=== PATIENT | female | born 1990 | race Caucasian/White ===

== ENCOUNTER → 2021-07-24 12:50 | Observation (INO) | END | disposition home or self-care (01) | LOC: 1NENULAB | PROVIDERS: ADMIT Obstetrics & Gynecology; ATTEND Obstetrics & Gynecology ==

== ENCOUNTER → 2021-07-28 14:57 | Observation (INO) | END | disposition home or self-care (01) | LOC: 1NENULAB | PROVIDERS: ADMIT Obstetrics & Gynecology; ATTEND Obstetrics & Gynecology ==

== ENCOUNTER 2021-07-31 09:42 | Inpatient (IN) ==
[2021-07-31 08:27] LABS: Bilirubin,Urine Negative (Negative); Blood,Urine Large (Negative); Clarity,Urine Clear (Clear); Color,Urine Yellow (Yellow); Glucose,Urine (UA) Normal (Normal); Ketones,Urine Negative (Negative); Leukocyte Esterase,Urine Trace (Negative); Nitrite,Urine Negative (Negative); PH,Urine 6.5 pH Units (5.0-8.0); Protein,Urine Negative (Neg-Trace); Specific Gravity,Urine 1.015 (1.010-1.025); Urobilinogen,Urine Normal (Normal)
[2021-07-31 08:55] LABS: Bacteria,Urine Present per hpf (None-Few); RBC,Urine Present per hpf (0-3); Squamous Epithelial Cell,Urine Present per hpf (None-Few); WBC,Urine Present per hpf (0-3)
[~2021-07-31 09:42] MED LIST: Azithromycin 500 MG in 0.9 % Sodium Chloride 250 ML IVPB PRN; Clindamycin 900 MG/50 ML 900 MG/50 ML IV.SOLN IVPB ONE; Famotidine 20 MG/2 ML VIAL IVP ONE; Metoclopramide 10 MG/2 ML VIAL IVP ONE
[2021-07-31] MEDS ORDERED: Oxytocin 30 UNIT/503 ML BAG IVC SCH ×2 (09:45→15:20)
[2021-07-31] MEDS ORDERED: 0.9 % Sodium Chloride 1,000 ML IVC SCH (09:45)
[2021-07-31] MEDS ORDERED: *HR* Morphine Sulfate/PF 10 MG/10 ML AMPUL ONE (09:58)
[2021-07-31] MEDS ORDERED: *HR* FentaNYL (PF) 100 MCG/2 ML VIAL ONE (09:58)
[2021-07-31] MEDS ORDERED: EPHEDrine 50 MG/ML VIAL ONE (09:58)
[2021-07-31] MEDS ORDERED: Acetaminophen IV 1,000 MG/100 ML BAG IVPB ONE (10:00)
[2021-07-31] MEDS ORDERED: Ketorolac 30 MG/ML VIAL ONE (10:00)
[2021-07-31] MEDS ORDERED: Ondansetron 4 MG/2 ML VIAL ONE (10:00)
[2021-07-31] MEDS ORDERED: Ringers Solution, Lactated 1,000 ML ONE ×2 (10:01→10:10)
[2021-07-31 10:23] LABS: Basophils # 0.1 K/mcL (0.0-0.2); Basophils % 0.4 %; Eosinophils # 0.1 K/mcL (0.0-0.6); Eosinophils % 0.5 %; Hematocrit 42.6 % (35.3-44.9); Hemoglobin 14.9 g/dL (11.5-15.4); Immature Granulocytes % 0.9 % (0-4); Lymphocytes # 1.5 K/mcL (0.6-4.6); Lymphocytes % 8.8 %; Mean Corpuscular Hemoglobin 31.8 pg (28.0-33.3); Mean Platelet Volume 10.5 fL (9.4-12.4); Monocytes % 5.6 %; Neutrophils # 14.5 K/mcL (1.6-8.9); Platelet Count 202 K/mcL (140-400); Red Blood Count 4.68 M/mcL (3.82-4.97); Red Cell Distribution Width 12.8 % (11.5-14.5); Segmented Neutrophils % 83.8 %; White Blood Count 17.3 K/mcL (4.3-11.1)
[2021-07-31 11:13] LABS: Influenza A PCR Negative (Negative); Influenza B PCR Negative (Negative); Resp. Syncytial Virus PCR Negative (Negative)
[2021-07-31 11:46] LABS: SARS-CoV-2 by PCR (In House) Negative (Negative)
[2021-07-31] MEDS ORDERED: Insulin Regular, Human 100 UNIT/ML SUBQ ONE ×2 (12:59→16:45)
[2021-07-31] MEDS ORDERED: Ondansetron 4 MG/2 ML VIAL IVP PRN (15:20)
[2021-07-31] MEDS ORDERED: D5% in Water 1,000 ML IVC PRN ×2 (15:20→16:39)
[2021-07-31] MEDS ORDERED: *HR* Dextrose 50 % in Water (Syg) 50 ML SYRINGE IVP PRN ×2 (15:20→16:39)
[2021-07-31] MEDS ORDERED: Dextrose 4 GM Chewable Tablets PO PRN ×4 (15:20→16:39)
[2021-07-31] MEDS ORDERED: Metoclopramide 10 MG/2 ML VIAL IVP PRN (15:20)
[2021-07-31] MEDS ORDERED: Insulin Human Regular 10 UNIT in 0.9 % Sodium Chloride 10 ML IV ONE (16:14)
[2021-07-31] MEDS ORDERED: Insulin Human Regular 10 UNIT in 0.9 % Sodium Chloride 10 ML SUBQ ONE (16:16)
[2021-07-31] MEDS ORDERED: Insulin LISPRO 300 UNITS/3 ML VIAL SUBQ PRN (16:39)
[2021-07-31] MEDS ORDERED: Insulin LISPRO 300 UNITS/3 ML VIAL SUBQ SCH (18:00)
[2021-07-31] MEDS: Ibuprofen 600 MG TABLET PO SCH ×2 (19:18→20:50)
[2021-07-31] MEDS: Acetaminophen 325 MG TABLET PO SCH ×2 (19:18→20:50)
[2021-08-01] MEDS: Acetaminophen 325 MG TABLET PO SCH ×3 (03:47→20:05)
[2021-08-01] MEDS: Ibuprofen 600 MG TABLET PO SCH ×4 (03:47→20:05)
[2021-08-01 04:05] LABS: Basophils % 0.3 %; Eosinophils # 0.1 K/mcL (0.0-0.6); Eosinophils % 0.4 %; Hematocrit 35.5 % (35.3-44.9); Immature Granulocytes % 0.8 % (0-4); Lymphocytes # 1.5 K/mcL (0.6-4.6); Lymphocytes % 9.1 %; Mean Corpuscular HGB Conc 35.2 g/dL (31.6-35.5); Mean Corpuscular Hemoglobin 32.2 pg (28.0-33.3); Mean Corpuscular Volume 91.5 fL (83.0-100.0); Mean Platelet Volume 10.7 fL (9.4-12.4); Monocytes # 0.9 K/mcL (0.0-1.3); Monocytes % 5.6 %; Neutrophils # 13.4 K/mcL (1.6-8.9); Platelet Count 195 K/mcL (140-400); Red Blood Count 3.88 M/mcL (3.82-4.97); Red Cell Distribution Width 12.9 % (11.5-14.5); Segmented Neutrophils % 83.8 %
[2021-08-01 04:06] LABS: Hemoglobin 12.5 g/dL (11.5-15.4)
[2021-08-01] MEDS: *HR* OxyCODONE Immed Rel 5 MG TABLET PO PRN ×3 (06:36→21:55)
[2021-08-01] MEDS: Prenatal Vit/FA 1 EACH TABLET PO SCH (08:16)
[2021-08-01] MEDS: Simethicone 80 MG TAB.CHEW PO PRN (14:33)
[2021-08-02] MEDS: Acetaminophen 325 MG TABLET PO SCH ×2 (04:22→12:39)
[2021-08-02] MEDS: Ibuprofen 600 MG TABLET PO SCH ×2 (04:22→12:40)
[2021-08-02] MEDS: *HR* OxyCODONE Immed Rel 5 MG TABLET PO PRN ×2 (04:26→13:12)
[2021-08-02] MEDS: Prenatal Vit/FA 1 EACH TABLET PO SCH (08:03)
[2021-08-02 09:08] VITALS: BP 110/64; PULSE 78; TEMP 98.1; O2SAT 97
[2021-08-02] MEDS: Simethicone 80 MG TAB.CHEW PO PRN (13:12)
== END 2021-08-02 18:20 | disposition home or self-care (01) | DRG 786 ==
LOC: 1NENULAB → 1NENUOBS 15:17
PROVIDERS: ADMIT Obstetrics & Gynecology; ATTEND Obstetrics & Gynecology